=== PATIENT | female | born 1995 | race Caucasian/White ===

== ENCOUNTER → 2016-11-02 | Outpatient (CLI) | payer BC ==
[~2016-11-02] MED LIST: ALPR.25T PO; VILA1TAB PO
--- OUTSIDE RECORDS SUMMARY | 2016-11-02 11:32 | XMS REPORT | Continuity of Care Document ---
Author Author [facility] Organization [facility] Address Unknown Phone Unavailable Care Team Providers Care Shared Services And Outsourcing Manager Name Role Phone PCP Unavailable Source Comments Some departments are not documenting in the electronic medical record. If you do not see the information that you expected, contact Release of Information in the Health Information Management department at [phone] for further assistance in locating additional records.[facility] Active Allergies and Adverse Reactions Not on File Current Medications Not on file Active Problems Not on file Most Recent Encounters Date Type Specialty Providers Description 11/01/2016 Telephone Otolaryngology Stevie Cantrell MD Navigation Follow Up 10/31/2016 Telephone Otolaryngology Stevie Cantrell MD Navigation Follow Up 10/30/2016 Orders Only Otolaryngology Stevie Cantrell MD Thyroid nodule (Primary Dx); Family history of thyroid cancer Social History Tobacco Use Types Packs/Day Years Used Date Never Assessed Plan of Care Date Type Specialty Providers Description 11/07/2016 Appointment Otolaryngology Stevie Cantrell MD [address] [place] [address] [phone] (Fax) Health Maintenance Due Date Last Done Comments Physical (Comprehensive) 2002 Exam Hpv Vaccines (#1) 2006 Pertussis Vaccine 2006 Tetanus Vaccine 2012 Cervical Cancer Screening 2016 Influenza Vaccine 06/28/2016 Results from Last 3 Months Not on file
--- NOTE | 2016-11-02 18:57 | Diagnostic Imaging Report ---
PROCEDURE: US Thyroid. TECHNIQUE: Multiple real-time grayscale images were obtained of the thyroid in various projections. INDICATION: History of thyroid cancer. FINDINGS: The right thyroid lobe is 4 x 1.4 x 1.3 cm. The left lobe is 4.6 x 1.3 x 1.5 cm. Previously seen tiny colloid cyst in the left lobe is not seen at this time. No focal nodule or mass identified. IMPRESSION: Unremarkable exam. Dictated by: Dictated on workstation # [id number]
== END ==
LOC: RAD 11:28
PROVIDERS: ATTEND Otolaryngology
DX: E04.1 Nontoxic single thyroid nodule (principal); Z80.8 Family history of malignant neoplasm of other organs or systems
CPT/HCPCS: 36415; 76536; 84443

== ENCOUNTER → 2018-03-21 | Outpatient (CLI) | payer BC | LOC: RAD 14:20 | PROVIDERS: ATTEND Nurse Practitioner Family | DX: Z53.8 Procedure and treatment not carried out for other reasons (principal); N94.6 Dysmenorrhea, unspecified ==